=== PATIENT | male | born 2000 | race Caucasian/White ===

== ENCOUNTER → 2020-04-22 | Outpatient (CLI) | payer OTHER, MEDICAID ==
[~2020-04-22] MED LIST: DIGITEK125 MC2 PO; FAMOTIDINE40 MG; FISH OIL 1,0001 EAC9; FLOVENT DISKUS50 MCG; FUROSEMIDE 20 M20 MG; IBU600 MG; LOPRESSOR50 MG PO; LORATIDINE 10 M10 M1; MIRALAX119 GM; MIRTAZAPINE7.5 MG PO; MONTELUKAST SODI4 M1; MOVE FREE ULTR1 EAC2; MOVE IT ALONG100 MG; NEURONTIN600 MG PO; PERCOCET 5-3251 EACH PO; RAMIPRIL5 MG PO; SERTRALINE HCL100 MG; SPIRONOLACTONE25 MG; SUPER THERAVIT1 EACH; ZANAFLEX4 M1 PO
== END ==
LOC: M.PC 04-15 12:10
PROVIDERS: ATTEND Anesthesiology Pain Medicine
DX: M54.5 Low back pain (principal); G89.29 Other chronic pain; I10 Essential (primary) hypertension; J45.909 Unspecified asthma, uncomplicated; M19.90 Unspecified osteoarthritis, unspecified site; G47.33 Obstructive sleep apnea (adult) (pediatric); G71.00 Muscular dystrophy, unspecified; Z88.8 Allergy status to other drugs, medicaments and biological substances; Z79.899 Other long term (current) drug therapy

== ENCOUNTER → 2020-07-22 | Outpatient (CLI) | payer OTHER, MEDICAID | LOC: M.PC 12:46 | PROVIDERS: ATTEND Anesthesiology Pain Medicine | DX: G71.01 Duchenne or Becker muscular dystrophy (principal); G89.29 Other chronic pain; I10 Essential (primary) hypertension; J45.909 Unspecified asthma, uncomplicated; G47.30 Sleep apnea, unspecified; Z79.891 Long term (current) use of opiate analgesic; Z79.899 Other long term (current) drug therapy ==

== ENCOUNTER → 2020-08-19 | Outpatient (CLI) | payer OTHER, MEDICAID ==
[~2020-08-19] MED LIST changes: +ULTRAM 50MG TAB50 MG PO
== END ==
LOC: M.PC 11:13
PROVIDERS: ATTEND Anesthesiology Pain Medicine
DX: G71.01 Duchenne or Becker muscular dystrophy (principal); M54.5 Low back pain; G89.29 Other chronic pain; I10 Essential (primary) hypertension; J45.909 Unspecified asthma, uncomplicated; G47.30 Sleep apnea, unspecified; M19.90 Unspecified osteoarthritis, unspecified site; Z79.899 Other long term (current) drug therapy; Z79.891 Long term (current) use of opiate analgesic

== ENCOUNTER → 2020-10-05 | Outpatient (CLI) | payer OTHER, MEDICAID | LOC: M.PC 09:11 | PROVIDERS: ATTEND Anesthesiology Pain Medicine | DX: G71.01 Duchenne or Becker muscular dystrophy (principal); G89.29 Other chronic pain; I10 Essential (primary) hypertension; J45.909 Unspecified asthma, uncomplicated; G47.30 Sleep apnea, unspecified; M19.90 Unspecified osteoarthritis, unspecified site; Z79.899 Other long term (current) drug therapy; Z79.891 Long term (current) use of opiate analgesic ==

== ENCOUNTER → 2020-12-07 | Outpatient (CLI) | payer OTHER, MEDICAID | LOC: M.PC 10:02 | PROVIDERS: ATTEND Anesthesiology Pain Medicine | DX: G89.29 Other chronic pain (principal); M54.5 Low back pain; I10 Essential (primary) hypertension; I51.9 Heart disease, unspecified; J45.909 Unspecified asthma, uncomplicated; J98.4 Other disorders of lung; M19.90 Unspecified osteoarthritis, unspecified site; G47.30 Sleep apnea, unspecified; G71.00 Muscular dystrophy, unspecified; Z79.899 Other long term (current) drug therapy ==

== ENCOUNTER → 2021-01-27 | Outpatient (CLI) | payer OTHER, MEDICAID | LOC: M.PC 12:10 | PROVIDERS: ATTEND Anesthesiology Pain Medicine | DX: G89.29 Other chronic pain (principal); M54.50 Low back pain, unspecified; I10 Essential (primary) hypertension; J45.909 Unspecified asthma, uncomplicated; M19.90 Unspecified osteoarthritis, unspecified site; G47.30 Sleep apnea, unspecified; J98.4 Other disorders of lung; Z79.899 Other long term (current) drug therapy ==

== ENCOUNTER → 2021-02-17 | Outpatient (CLI) | payer OTHER, MEDICAID | LOC: M.PC 09:35 | PROVIDERS: ATTEND Anesthesiology Pain Medicine | DX: G71.01 Duchenne or Becker muscular dystrophy (principal); G89.29 Other chronic pain; I10 Essential (primary) hypertension; J45.909 Unspecified asthma, uncomplicated; I51.9 Heart disease, unspecified; J98.4 Other disorders of lung; G47.30 Sleep apnea, unspecified ==

== ENCOUNTER → 2021-04-07 | Outpatient (CLI) | payer OTHER, MEDICAID | LOC: M.PC 12:51 | PROVIDERS: ATTEND Anesthesiology Pain Medicine | DX: G89.29 Other chronic pain (principal); M54.50 Low back pain, unspecified; J45.909 Unspecified asthma, uncomplicated; I11.9 Hypertensive heart disease without heart failure; J98.4 Other disorders of lung; G47.30 Sleep apnea, unspecified; Z79.899 Other long term (current) drug therapy ==